=== PATIENT | female | born 1960 | race Caucasian/White ===

== ENCOUNTER 2016-04-26 14:29 | Inpatient (IN) | payer SELFPAY ==
[~2016-04-26] VITALS: Ht 157.5 cm; Wt 74.7 kg
[~2016-04-26 14:29] MED LIST: ARAVA DPS20 MG PO; BUPROPION XL300 MG PO; CLARITIN DPS10 MG PO; DECADRON-DPS4 MG PO; GLUCOPHAGE-DPS500 MG PO; HUMALOG100 UNIT/1 SQ; LEVEMIR100 UNIT/1 SQ; LIDOCAINE VISCO15 ML PO; MARYS PO; MICRO-K DPS10 MEQ PO; MORPHINE SULFAT15 M1 PO; NEURONTIN DPS300 MG PO; NEURONTIN DPS600 MG PO; NORCO 5-325 TA1 EACH PO; PERCOCET 10 DPS1 TAB PO; PLAQUENIL DPS200 MG PO; PROTONIX40 MG PO; REGLAN-DPS10 MG PO; REMERON DPS15 MG PO; THERA1 EACH PO; TYLENOL DPS325 MG PO; ULTRAM DPS50 MG PO; VALTREX DPS1 GM PO; XANAX DPS0.5 MG PO; ZOFRAN4 MG PO
--- NOTE | 2016-04-28 08:36 | CO ---
ADMIT: 04/26/2016 RM/LOC: 504 [facility] MR#: [id number] 2620 [facility] [address] [place], [place] [address] CHRISTINA ADAMS [address] [address] [address] [place] [address] Consultation SEX: F AGE: 55 : 1960 DATE OF CONSULTATION: 04/27/2016 ATTENDING PHYSICIAN: Hans Ferugson CONSULTING PHYSICIAN: Hans Rizo MD REASON FOR CONSULTATION: Depression. HISTORY OF PRESENT ILLNESS: The patient is a 55-year-old female who presents to the hospital with nausea and vomiting. She reports a long history of depression off and on for several years and says that the depression worsened after the patient was diagnosed with cancer of the breast about a year ago. The patient says that her cancer is in remission and she should be happy but she is not and instead her depression has worsened. She feels sad nearly everyday for most days and says that she gets tired easily and is also easily overwhelmed. The patient reports difficulty falling asleep most nights. She says that her appetite has reduced and she has gained weight apparently from medications and from reduced activities. The patient reports feelings of hopelessness, worthlessness and guilt. She denies thoughts of dying and reports difficulty concentrating and increased anxiety. The patient reports stressors to include her being an alcoholic and her daughter having difficulty with the Department [employer]. She worries that her grandson would be taken into care. The patient denies panic attacks, phobias, obsessions or Compulsions. She denies a history of manic or hypomanic episodes and has no psychotic symptoms. PAST PSYCHIATRIC HISTORY: The patient reports a history of recurrent depression and anxiety. She has no prior hospitalizations, but been on several medications over the years, especially the tricyclics, Prozac, Zoloft, and others she does not recall. She denies a history of self harm or prior suicide attempt. PAST MEDICAL HISTORY: Breast cancer; rheumatoid arthritis; diabetes, type 2; chronic pain syndrome; polyneuropathy; chronic opioid medication use. MEDICATIONS: See medication list. ALLERGIES: CODEINE. SOCIAL HISTORY: The patient is and lives with her near [place]. She denies a history of childhood abuse or trauma. 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 She denies illegal problems and denies alcohol, tobacco and illicit drug use. FAMILY HISTORY: Significant for bipolar disorder. REVIEW OF SYSTEMS: 10 systems reviewed and all others negative except as noted in the history. MENTAL STATUS EXAMINATION: The patient is seen by [facility]. She is ADMIT: 04/26/2016 RM/LOC: 504 [facility] MR#: [id number] [address] [address] CHRISTINA ADAMS [address] [place] [address] Consultation SEX: F AGE: 55 : 1960 cooperative with interview. She maintains good eye contact. She has normal psychomotor activity. Her speech is normal in rate and volume. She describes her mood as depressed and anxious. Her affect is restricted. Her thoughts are logical and goal directed. She denies suicidal, homicidal, or violent ideation. She denies hallucinations and has no delusions. She is alert and oriented to time, person, and place. Her concentration and memory are normal. Her language is intact. Her intelligence is average. Her insight and judgement are fair. DIAGNOSIS: Major depressive disorder, recurrent, severe. PLAN: Discussed assessment with the patient and nursing staff. Recommend starting the patient on Effexor XR 75 mg daily and adjust dose as tolerated, schedule outpatient counseling and followup with Psychiatry for medication management. Thank you for your consult. Hans Rizo MD/ dex JOB #: [id number] CC: Hans Ferguson, Attending Physician Hans Ferguson, Family Physician
[2016-04-28] MEDS ORDERED: ARAVA DPS20 MG PO (18:50)
[2016-04-28] MEDS ORDERED: PLAQUENIL DPS200 MG PO (18:50)
[2016-04-28] MEDS ORDERED: MS CONTIN15 MG PO (18:50)
[2016-04-28] MEDS ORDERED: GLUCOPHAGE-DPS500 MG PO (18:50)
[2016-04-28] MEDS ORDERED: THERA1 EACH PO (18:51)
[2016-04-28] MEDS ORDERED: ULTRAM DPS50 MG PO (18:51)
[2016-04-28] MEDS ORDERED: XANAX DPS0.5 MG PO (18:51)
[2016-04-28] MEDS ORDERED: PERCOCET 10-321 EACH PO (18:51)
[2016-04-28] MEDS ORDERED: NEURONTIN DPS600 MG PO (18:52)
[2016-04-28] MEDS ORDERED: LEVEMIR100 UNIT/1 SQ (18:52)
[2016-04-28] MEDS ORDERED: HUMALOG100 UNIT/1 SQ (18:53)
[2016-04-28] MEDS ORDERED: ARIMIDEX DPS1 MG PO (18:54)
[2016-04-28] MEDS ORDERED: SURFAK DPS240 MG PO (18:54)
[2016-04-28] MEDS ORDERED: ZOFRAN4 MG PO (18:54)
[2016-04-28] MEDS ORDERED: REGLAN-DPS10 MG PO (18:54)
[2016-04-28] MEDS ORDERED: EFFEXOR XR75 MG PO (18:54)
[2016-04-28] MEDS ORDERED: MIRALAX PACKET17 GM PO (18:55)
--- NOTE | 2016-05-04 08:17 | DS ---
ADMIT: 04/26/2016 RM/LOC: 504 [facility] MR#: [id number] 2620 [facility] [address] [place], [place] [address] DEE DEE ADAMS [address] [address] Discharge Summary SEX: F AGE: 55 : 1960 ADMISSION DATE: 04/26/2016 DISCHARGE DATE: 04/28/2016 CONSULTATIONS: Psychiatry. FINAL DIAGNOSES: 1. Gastroparesis, improved. 2. Intractable nausea and vomiting, resolved. 3. Type 2 diabetes mellitus, improved. 4. Major depressive disorder, improved on Effexor. 5. Hypovolemia, resolved. REASON FOR ADMISSION: Please see H and P. However briefly, Dee Dee Adams was admitted with intractable nausea and vomiting. HOSPITAL COURSE: Admitted to the service of [facility] under the care of myself, Hans Ferguson MD. Received appropriate intervention for nausea and vomiting. Did have some hypoxia upon admission, unclear if this is actually a true hypoxia or this might have been a malfunction of the machines as there is no evidence of PE. She is doing fantastic now and no evidence of further hypoxemia. Received consultation with psychiatrist who started her on Effexor. We do initiate her on Reglan and has dramatic improvement of her nausea and vomiting. I think this clearly likely represents a gastroparesis. Did discuss risks and benefits of the medication including tardive dyskinesia, and the importance of stopping immediately if she does develop such. She wishes to discharge home. DISPOSITION: Home. DISCHARGE CONDITION: Stable. DISCHARGE MEDICATIONS: See medication reconciliation, reviewed and accurate. DISCHARGE INSTRUCTIONS: Discharged to home. Continue medications as noted. See me and in one weeks' time or my nurse practitioner. If she develops any signs of tardive dyskinesia, she will notify me immediately. I have discussed the plan with the patient, expressed understanding, was in agreement and had no further questions. is at his bedside. Thirty minutes spent discharge activities of this patient. Hans Ferguson MD/ vdg JOB #: [id number] CC: Hans Ferguson MD, Attending Physician ADMIT: 04/26/2016 RM/LOC: 504 [facility] MR#: [id number] [address] [address] DEE DEE ADAMS [address] [place] [address] Discharge Summary SEX: F AGE: 55 : 1960 Hans Ferguson MD, Family Physician
--- NOTE | 2016-05-04 08:17 | HP ---
ADMIT: 04/26/2016 RM/LOC: 504 [facility] MR#: [id number] 2620 [facility] [address] [place] [address] DEE DEE ADAMS [address] [address] History and Physical SEX: F AGE: 55 : 1960 DATE OF SERVICE: CHIEF COMPLAINT: Intractable nausea and vomiting. HISTORY OF PRESENT ILLNESS: Dee Dee Adams is a very nice 55-year-old female, who is well-known to my service. She does have a history of breast cancer as well as she has history of poorly controlled type 2 diabetes mellitus. She does have chronic polyneuropathy secondary to her chemotherapy. She was recently admitted for gastroenteritis and discharged on the . She was in my clinic today for followup. She was retching and having vomiting in the clinic. Vital signs were stable; however, heart rate was elevated at 120. She states she had not eaten or drank much for couple days. Secondary to her hypovolemia as well as tachycardia, she is actually referred over for direct admission for IV fluids and antiemetic therapy. She is actually resting more comfortably now upon my evaluation, however, she has severe back pain as she is due for her pain medications. I tried to talk to Dee Dee to get details on what exactly happened this time. She is not willing to talk much about her history. She states that she just does not feel well and that she is having some breakthrough pain. However, she does tell me that she just had no heralding symptoms or there are anything like that. No difficulty swallowing. No terrible constipation or anything like that. She just had gastritis and nausea and vomiting come out of nowhere after complete resolution just 1-1/2 days ago and beyond that, she just does not really want to talk to me much. However, does endorse that yesterday she was getting along pretty well. She had the family members visiting, no one was sick or any exposures like that. She had not been having fevers or complaining much, but rather suddenly did have this onset after she was severely tired and fatigued after all of her company. PAST MEDICAL HISTORY: 1. Breast cancer history. 2. Generalized pain secondary to rheumatoid arthritis. 3. Type 2 diabetes mellitus, poorly controlled. 4. Polyneuropathy. 5. Chronic pain syndrome. 6. Chronic narcotic therapy. MEDICATIONS: 1. Metformin. 2. Hydroxychloroquine. 3. Leflunomide. 4. Morphine. 5. Alprazolam. 6. Tramadol. 7. Percocet. 8. Multivitamin. 9. Levemir. 10.Gabapentin. 11.Humalog. ADMIT: 04/26/2016 RM/LOC: 504 [facility] MR#: [id number] [address] [address] DEE DEE ADAMS [address] [place] [address] History and Physical SEX: F AGE: 55 : 1960 12.Anastrozole. ALLERGIES: NO KNOWN MEDICAL ALLERGIES. FAMILY HISTORY: Includes heart disease in mom and dad. SOCIAL HISTORY: She is a never smoker. She is a never chewer. She drinks occasionally. She does not use drugs. She is . REVIEW OF SYSTEMS: Complete review of systems attempted to be obtained, however, she is positive for nausea, vomiting, diarrhea, and no pain to normal palpation. PHYSICAL EXAMINATION: VITAL SIGNS: Blood pressure is 162/114, however, this has improved; heart rate is 117; respiratory rate is 16; temperature is 98.7; she is on 1 L per nasal cannula. She was 79% upon arrival on room air. She left her office at 96% on room air. She is requiring 1 L of oxygen at this time. HEENT: Normocephalic, atraumatic. Eyes, extraocular muscles intact. Normocephalic, atraumatic. Pupils equal and responsive to light. No nasal discharge. NECK: Supple. HEART: Tachycardic. LUNGS: Clear to auscultation. No rhonchi are noted. ABDOMEN: Soft, is nondistended. It is not tender to vigorous palpation, but nothing to superficial palpation on or anything of that nature. No rebound. EXTREMITIES: No clubbing or cyanosis. She is dry. LABORATORY DATA AND IMAGING: AST is 33, alk phos is 178, bilirubin is 0.6, calcium is 10.3, protein is 7.9, albumin is 4.3, glucose is 14, BUN is 9, creatinine is 0.6. Sodium is 130, potassium is 4.1, chloride is 98, CO2 is 30. White blood cells are not elevated at 9.3, hemoglobin is 13.8, platelets are 203. EKG, sinus tachycardia. Comparing her EKGs to old ones show not much difference. Troponins are negative. Laboratories in the hospital here; chest x-ray, no acute cardiopulmonary process. Abdomen x-ray shows a stomach full of air, but there is no air in the colon or the small bowel. Troponin is less than 0.015. UA with no UTI. ASSESSMENT: 1. Intractable nausea and vomiting. 2. Hypokalemia. 3. Type 2 diabetes mellitus. 4. Chronic pain. 5. Rheumatoid arthritis. PLAN: I will go ahead and admit her to Inpatient Service. She is given high volume fluid resuscitation. I am going to go ahead and slow this down to 100 ADMIT: 04/26/2016 RM/LOC: 504 [facility] MR#: [id number] [address] [address] DEE DEE ADAMS [address] [address] History and Physical SEX: F AGE: 55 : 1960 mL an hour. I am concerned she was hypoxic and having those degree of tachycardia, I am concerned she might have a pulmonary embolism based on her history of cancer. I will go ahead and order a stat CTA of her chest. She does have air in her stomach, but not in rest of her bowel and highly suspicious for delayed gastric emptying secondary to her diabetes. I will go ahead and maintain her home diabetic regimen. We will give her clears today, and I am going to go ahead put her on some empiric scheduled Reglan to see if we can do this. I feel this is likely secondary to likely delayed gastric emptying. However, she does not see any improvement with air distended stomach and nothing distally, she may need upper GI studies. The patient is a full code. Maintain on SCDs and LACI hose, and we will place her on some DVT prophylaxis with Lovenox. Hans Ferguson MD/ dex JOB #: [id number] CC: Hans Ferguson, Attending Physician Hans Ferguson, Family Physician
[2016-05-18] MEDS ORDERED: GLUCOPHAGE-DPS500 MG PO (10:45)
[2016-05-18] MEDS ORDERED: PROTONIX40 MG PO (10:48)
== END 2016-04-28 16:57 | disposition home or self-care (01) | DRG 74 ==
LOC: 5MS 14:29
PROVIDERS: ADMIT Internal Medicine
DX: E11.43 Type 2 diabetes mellitus with diabetic autonomic (poly)neuropathy (principal); K31.84 Gastroparesis; E86.1 Hypovolemia; F33.2 Major depressive disorder, recurrent severe without psychotic features; G62.0 Drug-induced polyneuropathy; E11.65 Type 2 diabetes mellitus with hyperglycemia; T45.1X5S Adverse effect of antineoplastic and immunosuppressive drugs, sequela; F41.9 Anxiety disorder, unspecified; M54.9 Dorsalgia, unspecified; R91.8 Other nonspecific abnormal finding of lung field; M06.9 Rheumatoid arthritis, unspecified; G89.4 Chronic pain syndrome; E87.6 Hypokalemia; R09.02 Hypoxemia; Z85.3 Personal history of malignant neoplasm of breast; Z79.4 Long term (current) use of insulin

== ENCOUNTER 2016-05-15 11:29 | Inpatient (IN) | payer SELFPAY ==
[~2016-05-15] VITALS: Ht 157.5 cm; Wt 73.2 kg
[~2016-05-15 11:29] MED LIST changes: +ARIMIDEX DPS1 MG PO; +EFFEXOR XR75 MG PO; +MIRALAX PACKET17 GM PO; +MS CONTIN15 MG PO; +PERCOCET 10-321 EACH PO; +SURFAK DPS240 MG PO
[2016-05-18] MEDS ORDERED: GLUCOPHAGE-DPS500 MG PO (10:45)
[2016-05-18] MEDS ORDERED: PROTONIX40 MG PO (10:48)
--- NOTE | 2016-05-19 10:47 | HP ---
ADMIT: 05/15/2016 RM/LOC: 625 [facility] MR#: [id number] [address] [facility] [address] [place] [address] CHRISTINA ADAMS [address] [address] [address] [place] [address] History and Physical SEX: F AGE: 55 : 1960 DATE OF SERVICE: 05/15/2016 CHIEF COMPLAINT: Intractable nausea and vomiting. HISTORY OF PRESENT ILLNESS: This is a 55-year-old female with history of breast cancer and poorly controlled type 2 diabetes who was recently admitted for similar symptoms and was diagnosed with gastroparesis and started on Reglan and sent home on April 28. The patient reports she had been doing well up until last night when she noticed recurrence of her symptoms after eating a grilled cheese. She took Reglan at that time, without improvement. Since then, she has not been able to keep anything down, including water. Zofran has not provided any relief and she has not taken any Reglan this a.m. She endorses intermittent abdominal pain over her entire abdomen. She is unable to further describe the character of this pain. She has not had bowel movement yesterday, but did have a normal bowel movement the day before. She reports she is still passing gas. States this feels like exactly like her last episode of gastroparesis. She denies any fevers, chills, sick contacts. No hematemesis, heartburn, shortness of breath, chest pain. She notes that she has not taken her blood sugars or taken any insulin since yesterday morning. Neither she nor her know the dose of the insulin that she is taking. PAST MEDICAL HISTORY: 1. Breast cancer. 2. Pain secondary to rheumatoid arthritis. 3. Poorly controlled type 2 diabetes. 4. Gastroparesis. 5. Polyneuropathy. 6. Chronic pain on chronic narcotics. MEDICATIONS: 1. Metformin. 2. Hydroxychloroquine. 3. Leflunomide. 4. Morphine. 5. Alprazolam. 6. Tramadol. 7. Percocet. 8. Multivitamin. 9. Levemir. 10.Gabapentin. 11.Humalog. 12.Anastrazole. 13.Effexor. 14.Reglan. 15.Docusate. 16.MiraLax. 17.Zofran. ADMIT: 05/15/2016 RM/LOC: 625 [facility] MR#: [id number] [address] [address] ANGIEALDORA [place] [address] [place] [address] History and Physical SEX: F AGE: 55 : 1960 ALLERGIES: NO KNOWN DRUG ALLERGIES. FAMILY HISTORY: Heart disease in parents. SOCIAL HISTORY: Denies tobacco or drug use. Reports occasional alcohol use. REVIEW OF SYSTEMS: Complete review of systems was obtained and is negative except for what is listed in the HPI above. PHYSICAL EXAMINATION: VITAL SIGNS: At the time of her clinic visit include; blood pressure 132/100, pulse 110, temperature 36 degree Celsius, respiratory rate 18, and oxygen saturation 97% on room air. GENERAL: Alert and oriented, emesis bag present with emesis. The patient appears uncomfortable. HEENT: Mucous membranes moist. CARDIOVASCULAR: Slightly tachycardic, otherwise regular rate and rhythm without murmurs. RESPIRATORY: Clear to auscultation bilaterally. Good air movement. ABDOMEN: Soft, nondistended. Tenderness to moderate palpation in all 4 quadrants. Bowel sounds hypoactive. EXTREMITIES: No edema or cyanosis noted. LABORATORY DATA: Obtained in clinic include a CMP; sodium 134, chloride 95, creatinine 0.57, glucose 455, anion gap normal, AST mildly elevated at 33, ALT mildly elevated at 42, alkaline phosphatase mildly elevated at 193. LFTs are similar compared to her last admission on 26 April. Other labs in her CMP were normal. ASSESSMENT AND PLAN: This 55-year-old female with history of breast cancer, type 2 diabetes, recently diagnosed gastroparesis admitted with intractable nausea and vomiting. 1. Intractable nausea and vomiting. 2. Gastroparesis. a. We will give IV fluids and Reglan. b. We will get abdominal x-ray for further evaluation and to assess for small bowel obstruction, though seems less likely at this time. c. The patient will continue clear liquid diet today. d. Likely suspect her gastroparesis is due to a combination of diabetes and chronic narcotic use. e. Suspect she may need a gastric emptying study in the future, but we will await studies and course today. 3. Hyperglycemia. 4. Type 2 diabetes, poorly controlled. a. As neither patient nor her know what dose of insulin she is actually taking, we will start with Levemir 10 units subcutaneously daily as this is what was listed on her discharge medication reconciliation on the . We will do low dose sliding scale insulin, although suspect we will have to increase this. ADMIT: 05/15/2016 RM/LOC: 625 [facility] MR#: [id number] [address] [address] CHRISTINA ADAMS [address] [place] [address] History and Physical SEX: F AGE: 55 : 1960 b. We will monitor blood sugars. 5. Rheumatoid arthritis. 6. Chronic pain. a. We will continue home pain medications. We will likely need to start some Senna in addition to her other stool softeners, but we will hold off on that for now. 7. Major depressive disorder. a. The patient was recently started on Effexor during her last hospitalization, so we will continue Xanax. Full code. Deep venous thrombosis prophylaxis: We will start the patient on Lovenox. Hanane Olivera MD / Julianna Arroyo MD / dex JOB #: [id number] CC: Hans Ferguson, Attending Physician Hans Ferguson, Family Physician
--- NOTE | 2016-05-22 18:07 | DS ---
ADMIT: 05/15/2016 RM/LOC: 625 [facility] MR#: [id number] 2620 [facility] [address] [place] [address] CHRISTINA ADAMS [place] [address] [address] [address] [place] [address] Discharge Summary SEX: F AGE: 55 : 1960 ADMISSION DATE: 05/15/2016 DISCHARGE DATE: 05/17/2016 ATTENDING AT TIME OF DISCHARGE: Hans Ferguson MD CONSULTATIONS: General Surgery. PROCEDURES: Endoscopy. FINAL DIAGNOSES: 1. Intractable nausea and vomiting, resolved. 2. Gastritis. 3. Type 2 diabetes mellitus. 4. Presumed gastroparesis. HOSPITAL COURSE: Admitted to the services of [facility] under the care of Dr. Arroyo. Care is transitioned to myself on May 16. She does receive endoscopy, diagnosed with gastritis, nausea, vomiting, resolved. She discharges to home. DISPOSITION: Home. DISCHARGE CONDITION: Stable. DISCHARGE MEDICATIONS: See medication reconciliation, is reviewed and accurate. DISCHARGE INSTRUCTIONS: Discharge to home. Protonix 40 mg p.o. b.i.d. Follow up in clinic in 2-3 weeks. Thirty minutes spent on discharge activities of this patient. Hans Ferguson MD/ christofer JOB #: [id number] CC: Hans Ferguson MD, Attending Physician Hans Ferguson MD, Family Physician
--- NOTE | 2016-05-24 07:27 | OR ---
ADMIT: 05/15/2016 RM/LOC: 625 [facility] MR#: [id number] [address] [address] [place] [address] [address] [address] [place] [address] Operative/Delivery Room Report SEX: F AGE: 55 : 1960 SURGERY DATE: 05/17/2016 SURGEON: Dayne Solano MD PREOPERATIVE DIAGNOSIS: Nausea and vomiting. POSTOPERATIVE DIAGNOSIS: Mild gastritis. PROCEDURE: Esophagogastroduodenoscopy with biopsy. ANESTHESIA: IV general. DESCRIPTION OF PROCEDURE: The patient was taken to the endoscopy suite and placed left side down on her hospital cart. A bite-block was placed and IV sedation was established. The upper endoscope was advanced through the oropharynx into the esophagus without difficulty. The scope was pushed under visualization of the stomach. Air was used to insufflate the stomach. The pylorus was intubated. The first and second portions of the duodenum were examined and appeared grossly normal. Duodenal bulb biopsies were obtained to evaluate for celiac. The scope was withdrawn to the stomach. In the antrum, there was moderate hyperemia without discrete ulcer. Biopsies were obtained. On retroflexion of the scope, the gastric body, fundus, and cardia appeared normal. The scope was withdrawn to the gastroesophageal junction. The Z-line appeared normal as did the remainder of the esophageal mucosa upon withdrawal of the scope. The patient tolerated the procedure well and transferred to the recovery area in stable condition. Dayne Solano MD/ dex JOB #: [id number] CC: Hans Ferguson, Attending Physician Hans Ferguson, Family Physician
--- NOTE | 2016-06-03 12:20 | CO ---
ADMIT: 05/15/2016 RM/LOC: 625 [facility] MR#: [id number] [address] [address] CHRISTINA ADAMS [place] [address] [address] [address] [place] [address] Consultation Report SEX: F AGE: 55 : 1960 DATE OF CONSULTATION: 05/16/2016 ATTENDING PHYSICIAN: Hans Ferguson CONSULTING PHYSICIAN: Saleem Funes MD ADDENDUM: You can see full dictated consult by Hans Trinidad, my PA. A very pleasant 55-year-old female, who sounds like for quite a while now has been having intractable nausea and vomiting. Actually when I see her this evening, she says she is about the best she has ever felt of course, but this has been going on penitentiary and long enough, Dr. Ferguson asked that we see her and evaluate her with an EGD, make sure there is nothing significant going on from that standpoint. I have discussed that with her what it entails, the risks, benefits, possible complications, and alternatives. She understands, she states, and wishes to proceed. I did tell one of my partners may do it as I will be out of town most of the morning tomorrow. Otherwise, nothing else significantly has changed for Hans's H and P. The patient has been seen, examined, and procedure explained by myself as well. Saleem Funes MD/ dex JOB #: [id number] CC: Hans Ferguson, Attending Physician Hans Ferguson, Family Physician
--- NOTE | 2016-06-03 12:22 | CO ---
ADMIT: 05/15/2016 RM/LOC: [address] [facility] MR#: [id number] [facility] [address] [place] [id number] DEE DEE ADAMS [id number] [id number] Consultation SEX: F AGE: 55 : 1960 DATE OF CONSULTATION: 05/16/2016 ATTENDING PHYSICIAN: Hans Ferguson CONSULTING PHYSICIAN: Saleem Funes MD REASON FOR CONSULTATION: Intractable nausea, and vomiting. HISTORY OF PRESENT ILLNESS: Dee Dee is a very pleasant, 55-year-old female, who has been admitted three times in the last 2 months for intractable nausea and vomiting. She has been treated for this clinically by Dr. Ferguson with Reglan; however, this bout did not respond well to medications. She also had some mild abdominal pain with this that is diffuse throughout her abdomen. Occasionally, she gets a bout of diarrhea with her nausea and vomiting, but this did not occur at this time. Her last bowel movement was yesterday. She denies any hematemesis, dark or bloody stools. She does state on and off chills and night sweats. PAST MEDICAL HISTORY: Significant for: 1. Breast cancer diagnosis in January of 2015. 2. Rheumatoid arthritis. 3. Type 2 diabetes. 4. Gastroparesis. 5. Polyneuropathy. 6. Chronic pain. PAST SURGICAL HISTORY: No prior EGDs or colonoscopies. ALLERGIES: CODEINE. MEDICATIONS: Well documented in chart. FAMILY HISTORY: Noncontributory. SOCIAL HISTORY: The patient denies any alcohol, but is a tobacco user, smokes a cigarette every other day. Denies any illicit drug use. REVIEW OF SYSTEMS: CONSTITUTIONAL: The patient states on and off chills and night sweats. EYES: Patient has noticed decrease in her visual acuity and a foreign body sensation in the left eye, like the film comes over it every now and then. She is not noticing these symptoms at this time. HEAD: The patient gets occasional headaches. No headache currently. No dizziness or lightheadedness. The rest of a comprehensive 10-point review of systems was performed and all other systems are negative. PHYSICAL EXAMINATION: GENERAL: The patient is in no acute distress. She is ADMIT: 05/15/2016 RM/LOC: [address] [facility] MR#: [id number] [facility] [address] [place] [id number] DEE DEE ADAMS [id number] [address] Consultation SEX: F AGE: 55 : 1960 alert and oriented. HEENT: Head is normocephalic and atraumatic. EOMS are intact. Conjunctivae free of icterus, erythema, or pallor. Pinnae, free of deformities. Nose, midline. No tracheal deviation. NECK: Supple. SKIN: Negative for jaundice, clubbing, edema, pallor, or cyanosis. LUNGS: Clear to auscultation bilaterally. Normal respiratory effort. HEART: Distal pulses intact. Regular rate and rhythm. ABDOMEN: Soft, nondistended, and nontender. NEURO: Grossly intact. ASSESSMENT: Intractable nausea and vomiting. PLAN: Plan is to have the patient undergo EGD tomorrow performed by Dr. Funes. I discussed the risks, alternatives, benefits, and complications of the EGD with the patient and her who was present during my whole assessment. They are in agreement of this plan, I had all their questions answered and would like to proceed. I will get them consented, and put on schedule for tomorrow. Thank for the consultation of this patient. LOCO Eas[place] / Saleem Funes MD / dex JOB #: [id number] CC: Hans Ferguson, Attending Physician Hans Ferguson, Family Physician
== END 2016-05-17 12:20 | disposition home or self-care (01) | DRG 392 ==
LOC: 6PED 11:29
PROVIDERS: ADMIT Internal Medicine
PROC: 0DB98ZX Excision of Duodenum, Via Natural or Artificial Opening Endoscopic, Diagnostic (ICD-10-PCS; principal; 2016-05-17)
DX: K29.70 Gastritis, unspecified, without bleeding (principal); K31.84 Gastroparesis; E11.43 Type 2 diabetes mellitus with diabetic autonomic (poly)neuropathy; E11.65 Type 2 diabetes mellitus with hyperglycemia; F32.9 Major depressive disorder, single episode, unspecified; K21.9 Gastro-esophageal reflux disease without esophagitis; M06.9 Rheumatoid arthritis, unspecified; F17.210 Nicotine dependence, cigarettes, uncomplicated; G89.29 Other chronic pain; Z79.4 Long term (current) use of insulin; Z85.3 Personal history of malignant neoplasm of breast